=== PATIENT | female | born 1940 | race Caucasian/White ===

== ENCOUNTER 2023-03-19 08:48 | Emergency (ER) | payer MEDICARE, OTHER, SELFPAY ==
[2023-03-19 08:49] VITALS: BP 175/92
--- NOTE | 2023-03-19 09:00 | EDRN ---
Pt moved from room #23 to room #17 at this time via stretcher.
--- NOTE | 2023-03-19 09:01 | EDRN ---
Doc Thomas PA in room w/ pt at this time.
--- NOTE | 2023-03-19 09:18 | ED.GENMED ---
History of Present Illness
General
Chief Complaint: Musculo-Skeletal Complaint
Source: patient
Time Seen by Provider: 03/19/23 08:53
Travel History
Have you had any contact with someone who has COVID-19?: No
Do you have any symptoms of coronavirus? Fever > 100 degrees, chills, cough, shortness of breath, sore throat, loss of taste or smell, muscle aches, or headache?: No
History of Present Illness
History of Present Illness:
82-year-old female with a past medical history of hypertension, previous bowel obstruction and chronic back pain presenting to the emergency department for evaluation after she had an injection done at an [facility] yesterday for which
she states she needed to have done prior to a back surgery as she is scheduled to have at [facility] in the coming weeks but states she is unable to tell me exactly what type of injection she had done yesterday as well as what type of surgical
procedure she is supposed to have. Patient notes that she was supposed to have surgery a few months ago with another surgeon, Dr. Veronica, here at this facility but due to unforeseen circumstances had to have this surgery canceled and needed to
follow-up with another provider. Patient states that since her procedure yesterday she has had pain at the injection site which she notes is not typical for her as she has had injections in the past but has not had any pain with them. Patient
states the procedure was done around 8 AM to 9 AM yesterday, has not had any fevers, chills, rigors, neurologic symptoms including focal weakness or numbness/paresthesia, bowel or urinary incontinence, inability to ambulate or any other concerns.
Patient did drive herself to the ER today. She notes that she is unable to take any pain medications due to multiple allergies but did states she took some Motrin earlier today but did not provide her with any relief.
Past History
Past History
ED Past Medical History: HTN and Other (Breast cancer, cervical cancer)
ED Past Surgical History: Gynecological (Hysterectomy), Orthopedic and Other (Left sided mastectomy)
Social History
Tobacco: Non-smoker
Alcohol: None
Drug: None
Personal:
Living: with family
Review of Systems
Review of Systems
All Other Systems: ROS reviewed and negative except as documented in HPI and ROS
Phy Exam
Physical Exam
Physical Exam:
GENERAL: Alert , in no apparent distress
EYE: clear conjunctiva b/l
NECK: Supple
ENT: o/p clr, mmm.
BACK: Normal range of motion, no focal tenderness, no midline bony tenderness, no rashes. Patient does have a skin marker as to where the injection took place an injection site is noted but without any overlying erythema, edema or focal tenderness
to palpation
NEUROLOGICAL: Alert and oriented, no focal neuro deficits. sensation grossly intact and equal to light touch bilateral lower extremities. Ambulated with steady gait and without much difficulty
SKIN: Warm and dry, skin intact.
MUSCULOSKELETAL: No edema, well perfused. EHL intact bilaterally
PSYCH: Normal and appropriate interaction.
Scores
Heart Failure Risk
Heart Failure Risk Score: Not Applicable
Heart Score for Chest Pain Patients
STEMI patient?: Not applicable
Withdrawal Assessment of Alcohol
Withdrawal Assessment Completed?: Not applicable
Course
Vital Signs
Initial and Last Documented VS:
Initial Vital Signs
Temp Pulse Resp BP Pulse Ox
97.7 F 88 18 175/92 97
03/19/23 08:49 03/19/23 08:49 03/19/23 08:49 03/19/23 08:49 03/19/23 08:49
Last Documented Vital Signs
Temp Pulse Resp BP Pulse Ox
97.7 F 76 16 141/76 100
03/19/23 08:49 03/19/23 09:32 03/19/23 09:32 03/19/23 09:32 03/19/23 09:32
MDM/Problems Addressed
Differential Diagnosis Includes:
Postprocedural pain, no concern for infection given it is been less than 24 [address], no concern for an acute neurologic compromise
MDM/Problems Addressed:
82-year-old female presenting the emergency department for evaluation after some form of procedure on her back yesterday, states she did not have any pain prior to the procedure but following now noting considerable pain. It is overall unclear as
to why patient had this injection as she is not able to tell me what the injection was or why she was having it or what type of surgery she needed other than she has a chronic back issue and it was recommended by Dr. Nhan Veronica that she have this
surgery. Patient has had MRIs but they have been done at outpatient facilities so I am unable to view this. Patient did not have any paperwork with her from the surgery center or from her back specialist office. Overall patient does not appear to
have any acute signs of infection nor acute neurological complication. Due to extensive allergy will hold off on providing with any pain medication at this time. Attempting to get records from [facility] to see exactly what type of surgery patient
was recommended to have as well as hopefully what exact procedure was done.
Chronic conditions affecting care: Other (chronic back pain)
*Pulse Oximetry
Patient hypoxic: no
*Critical Care Note
Total Time (30-74mins, 75-104mins- exclusive of procedures): Not Applicable
Data Reviewed
Review of Other/Old Records Reveals: Records and Radiology Studies
Source: patient
Comment
Comment:
Patient did have a lumbar spine CT scan done on December 15, 2021 here which showed multilevel degenerative changes of the mid to the lower lumbar spine worst at L4-L5 where disc and facet disease contribute to severe spinal canal stenosis. Awaiting
records from [facility] to correlate.
Patient Management
Escalation/DeEscalation of care consider admission/obs:
I received multiple records from the [facility] where patient is currently following. Unfortunately they did not have her report from yesterday as this has not been completed but the office staff noted patient did have an epidural injection
done yesterday. Patient is noted to have foraminal stenosis of the lumbosacral region, lumbar stenosis with neurogenic claudication, spondylolisthesis of the lumbar region and spondylolisthesis of the lumbosacral region. It appears patient is
scheduled to undergo lumbar decompression at L4-S1 and likely need a fusion at L4 and L5. Patient is scheduled to undergo this procedure on April 05. At this time there does not appear to be any emergent pathology and the patient is stable for
discharge home. I encouraged the patient to contact [facility] and notify them of her symptoms as well as if they would like to follow-up with the patient. There does not appear to be any emergent pathology ongoing at this time. Patient advised on
post epidural symptoms that she should expect as well as return precautions to the emergency department. Patient is stable for discharge home.
ED Attending Note
-
Portions of this chart may have been created with voice recognition software.� Occasional wrong word or��sound alike� substitutions may have occurred due to the inherent limitations of voice recognition software.
Discharge Plan
Departure
Patient Disposition: Home (Routine Discharge)
Date of Disposition: 03/19/23
Time of Disposition: 11:02
Patient with high blood pressure during this ER visit?: Yes
Discharge Problem:
Other acute postprocedural pain
Instructions: Epidural Injection
Prescriptions:
No Action
cholecalciferol (vitamin D3) [Vitamin D3] 1,000 UNIT tablet,chewable
1,000 unit PO DAILY
Claritin-D 24 Hour 10-240 mg Tablet Extended Release 24 Hr
1 tab PO DAILY
lisinopril 5 mg Tablet
5 mg PO DAILY
Allergy Relief [place] 2-0.1 % Aerosol,[place]
1 spray DAILY
Referrals:
Johnathan Hill MD [Family Provider] -
Interventions
Interventions:
*Risk Screen - Suicide Last Done: 03/19/23 08:49
*General Assessment Last Done: 03/19/23 08:49
*Neglect/Abuse Screening Last Done: 03/19/23 08:49
*ED COVID-19 Vaccine History Last Done: 03/19/23 08:49
ED-Musculoskeletal Assessment Last Done: 03/19/23 09:33
[2023-03-19 09:31] VITALS: BMI 19.1
[2023-03-19 09:32] VITALS: BP 141/76
--- NOTE | 2023-03-19 11:00 | EDRN ---
Doc Thomas PA in room w/pt at this time.
[2023-03-19 11:05] VITALS: BP 148/81
[2023-03-19 11:16] VITALS: BP 148/81
== END 2023-03-19 11:05 | disposition home or self-care (01) ==
LOC: EMR 08:48
PROVIDERS: EMERGENCY PHYSICIAN Emergency Medicine; FAMILY PHYSICIAN Family Medicine
DX: G89.18 Other acute postprocedural pain (principal); I10 Essential (primary) hypertension; G89.29 Other chronic pain; M54.9 Dorsalgia, unspecified
CPT/HCPCS: 99282

== ENCOUNTER 2023-04-25 16:53 | Emergency (ER) | payer MEDICARE, OTHER, SELFPAY ==
[2023-04-25 16:53] VITALS: BMI 20.8
[2023-04-25 16:56] VITALS: BP 133/68
[2023-04-25 20:39] VITALS: BP 122/59
[2023-04-25 21:00] VITALS: BP 129/53
[2023-04-25 22:00] VITALS: BP 138/61
--- NOTE | 2023-04-25 22:03 | ED.GENMED ---
History of Present Illness
General
Chief Complaint: Fall
Source: patient and family (daughter)
Exam Limitations: none
Time Seen by Provider: 04/25/23 21:39
Travel History
Have you had any contact with someone who has COVID-19?: No
Do you have any symptoms of coronavirus? Fever > 100 degrees, chills, cough, shortness of breath, sore throat, loss of taste or smell, muscle aches, or headache?: No
History of Present Illness
History of Present Illness:
This is a 83 year old female that comes in with c/o fall. Daughter states that the patient was just discharged form [facility] on Sunday. States that she had back surgery there. State that she was discharged without any VN or Physical therapy. States
that she can barely walk with the walker. Patient was trying to walk form the couch to the with the walker and she fell. States that she can hardly get out of the chair and she can't take care of herself. Daughter states that she was to get on a
plane to [facility]. States that she hit her head and has a small laceration. Denies any fever, chills, chest pain, SOB, abd pain, nausea, vomiting, diarrhea, headache, dizziness, urinary burning.
Past History
Past History
ED Past Medical History: Cancer (Breast cancer, cervical cancer), HTN and Other (Back pain, Intussusception, Bowel obstructions, C-diff, )
ED Past Surgical History: Gynecological (Hysterectomy), Orthopedic (Femur fracture with allison, Lumbar back surgery) and Other (Left sided mastectomy, cataracts, )
Social History
Tobacco: Non-smoker
Alcohol: Occasional
Drug: None
Personal: Single
Living: alone
Review of Systems
Review of Systems
All Other Systems: ROS reviewed and negative except as documented in HPI and ROS
Constitutional: Reports no symptoms; Denies fever or chills
EENT: Reports no symptoms
Respiratory: Reports no symptoms; Denies cough or trouble breathing
Cardiac: Reports no symptoms; Denies chest pain
ABD/GI: Reports no symptoms; Denies abdominal pain, nausea, vomiting or diarrhea
: Reports no symptoms; Denies dysuria, frequency or urgency
Musculoskeletal: Reports back pain (due to recent surgery)
Skin: Reports other (small laceration to left posterior forehead)
Neurological: Reports no symptoms; Denies dizzy or headache
Psychiatric: Reports no symptoms
Phy Exam
General Physical Exam
General Presentation: no apparent distress
General age: appears stated age
General Skin: warm and dry
General Habitus: elderly
General Mental: alert
General Hydration: dry mucous membranes
ENT Exam
ENT Exam: TM's normal, pharynx normal and neck supple
Eye Exam
Eye Exam: EOMI
Cardiovascular Exam
Cardiovascular Exam: regular rate/rhythm, no edema and normal peripheral pulses
Pulmonary Exam
Pulmonary Exam: lungs clear, no respiratory distress, no rales, chest non tender, no crackles, no rhonchi, no wheezing and no cough
Gastrointestinal Exam
Gastrointestinal Exam: normal bowel sounds, non tender, soft, no organomegaly, no pulsatile mass and non distended
Musculoskeletal Exam
Musculoskeletal Exam: full ROM and other (Negative for cervical neck tenderness, )
Skin Exam
Skin Exam: normal color, warm/dry, no rash, no petechia, laceration (left posterior scalp small) and other (Low back incision with suture maintained. Negative for any redness, )
Psychiatric Exam
Psychiatric Exam: normal mood/affect
Course
Orders/Labs/Results
Orders:
Orders
04/25/23 22:03
CT Head W/o Iv Contrast Urgent
Comment:
Reason For Exam: fall hitting head
04/25/23 22:37
Complete Blood Count/With Diff Urgent
Comprehensive Metabolic Panel Urgent
04/25/23 23:54
0.9% Sodium Chloride 1000 ml [Nss] 1,000 ml IV BOLUS
Abnormal Lab Results
04/25/23
22:37
RBC 3.71 L 10^6/uL
(4.20-5.40)
Hgb 11.6 L g/dL
(12.0-16.0)
Hct 33.6 L %
(37.0-47.0)
MCH 31.3 H pg
(27.0-31.0)
Absolute Monos (auto) 1.2 H 10^3/uL
(0.1-0.6)
Lymphocytes % 15.0 L %
(20.5-51.1)
Monocytes % 12.8 H %
(1.7-9.3)
Sodium 131 L mmol/L
(135-145)
BUN 34 H mg/dl
(7-17)
Glucose 105 H mg/dl
(70-99)
AST 49 H U/L
(14-36)
ALT 82 H U/L
(0-35)
Alkaline Phosphatase 149 H U/L
(38-126)
Total Protein 6.2 L g/dl
(6.3-8.2)
04/25/23 22:37
04/25/23 22:37
H/H slightly low. Dehydration. Glucose nonfasting. AST/ALT elevation. Alk phos elevation.
Vital Signs
Initial and Last Documented VS:
Initial Vital Signs
Temp Pulse Resp BP Pulse Ox
98.1 F 80 18 133/68 98
04/25/23 16:56 04/25/23 16:56 04/25/23 16:56 04/25/23 16:56 04/25/23 16:56
Last Documented Vital Signs
Temp Pulse Resp BP Pulse Ox
98.8 F 86 20 137/59 98
04/26/23 01:58 04/26/23 01:58 04/26/23 01:58 04/26/23 01:58 04/26/23 01:58
Procedures
Laceration Closure
Left Posterior Scalp:
Status of Wound: clean
Size of Wound in cm: 2
Description of Wound Edges: sharp
Preparation: cleaned with saline (and peroxide)
Revision/Debridement: routine- no revision
Wound exploration: explored to base- no FB
Skin Closure Material: skin gagan
Additional information:
Two gagan placed
MDM/Problems Addressed
Differential Diagnosis Includes:
fall, ambulatory dysfunction,
MDM/Problems Addressed:
This is a 83 year old female that comes in with c/o fall. Daughter states that she was just discharged from [facility] on Sunday and she was sent home with no VN or PT. States that she lives alone and can barely walk. States that she can't get out of
the chair on her own. Patient fell trying to use the walker to get to the from the coach driver.
Will check labs, CT head and will admit for a social admission as Daughter is leaving for [place].
Back into see patient. Explained that her blood work shows that she is dehydrated and her liver enzymes are elevated. CT of the head is normal. Will admit patient for possible longterm placement for rehab. .
Chronic conditions affecting care:
NA
Acute Exacerbation and/or Progression of Chronic Illness:
Recent back surgery
*Radiology
Radiology exam reviewed: radiology read reviewed (CT head-No acute intracranial abnormality. Left lateral scalp laceration and small scalp hematoma. )
*Pulse Oximetry
Patient hypoxic: no
*EKG
Interpreted by ED Provider?: NA
Rate: EKG- N/A
*Telecommunications Project Manager Interpretation
Rate: Telecommunications Project Manager- N/A
*Critical Care Note
Total Time (30-74mins, 75-104mins- exclusive of procedures): Not Applicable
ED Attending Note
-
Portions of this chart may have been created with voice recognition software.� Occasional wrong word or��sound alike� substitutions may have occurred due to the inherent limitations of voice recognition software.
Discharge Plan
Departure
Patient Disposition: Admit
Date of Disposition: 04/25/23
Time of Disposition: 23:53
Admit to: Med/Surg
Presentation/result/management discussed w/ accepting MD/DO: Hospitalist
Patient with high blood pressure during this ER visit?: Yes
Condition: Good
Covid-19: Not Applicable
Discharge Problem:
Fall, Dehydration, Hospital admission due to social situation
Prescriptions:
No Action
cholecalciferol (vitamin D3) [Vitamin D3] 1,000 UNIT tablet,chewable
1,000 unit PO DAILY
lisinopril 5 mg Tablet
5 mg PO DAILY
tizanidine 2 mg tablet
2 mg PO HS PRN (Reason: muscle spasms)
tramadol 50 mg tablet
50 mg PO Q6H PRN (Reason: moderate pain)
Patient Comments:
04/25/2023: last filled 04/23/23, 20 tabs for 5 days from [id number]
loratadine 10 mg Tablet
10 mg PO DAILY
Referrals:
Johnathan Hill MD [Family Provider] -
Interventions
Interventions:
*Risk Screen - Suicide Last Done: 04/25/23 16:58
*General Assessment Last Done: 04/25/23 16:58
*Neglect/Abuse Screening Last Done: 04/25/23 16:58
ED- Fall Risk Assessment Last Done: 04/26/23 01:58
*ED COVID-19 Vaccine History Last Done: 04/25/23 20:52
ED- Cardiac Assessment Last Done: 04/26/23 01:58
ED-Musculoskeletal Assessment Last Done: 04/26/23 01:58
ED- Neurological Assessment Last Done: 04/26/23 01:58
ED- Pulmonary Assessment Last Done: 04/26/23 01:58
ED-Skin Assessment Last Done: 04/26/23 01:58
[2023-04-25 22:46] LABS: % Basophils 0.3 % (0-2); % Eosinophils 2.2 % (0-6); % Immature Granulocytes 0.3 % (0-0.5); % Monocytes 12.8 % (1.7-9.3); % Neutrophils 69.4 % (42.2-75.2); Absolute Eosinophils 0.2 10^3/uL (0-0.7); Absolute Lymphocytes 1.4 10^3/uL (1.2-3.4); Absolute Monocytes 1.2 10^3/uL (0.1-0.6); Absolute Neutrophils 6.3 10^3/uL (1.4-6.5); Hematocrit 33.6 % (37.0-47.0); Hemoglobin 11.6 g/dL (12.0-16.0); Mean Corp Hgb Conc. 34.5 g/dL (33.0-37.0); Mean Corpuscular Hgb 31.3 pg (27.0-31.0); Mean Corpuscular Volume 90.6 fL (81.0-99.0); Mean Platelet Volume 9.5 fL (7.4-10.4); Nucleated Red Blood Cells % 0 %; Platelet Count 252 10^3/uL (130-400); Red Blood Cell Count 3.71 10^6/uL (4.20-5.40); Red Cell Dist. Width 13.5 % (11.5-14.5); White Blood Cell Count 9.1 10^3/uL (4.8-10.8)
[2023-04-25 23:01] LABS: ALT (SGPT) 82 U/L (0-35); AST (SGOT) 49 U/L (14-36); Albumin 3.5 g/dl (3.5-5.0); Alkaline Phosphatase 149 U/L (38-126); Blood Urea Nitrogen 34 mg/dl (7-17); Calcium 8.8 mg/dl (8.4-10.2); Carbon Dioxide 27 mmol/L (22-30); Chloride 99 mmol/L (98-107); Estimated Creatinine Clearance 42 ml/min; Glucose 105 mg/dl (70-99); Potassium 4.4 mmol/L (3.5-5.1); Sodium 131 mmol/L (135-145); Total Bilirubin 0.6 mg/dl (0.2-1.3); Total Protein 6.2 g/dl (6.3-8.2)
[2023-04-26] MEDS: NSS 1000 IV (01:18)
[2023-04-26 01:58] VITALS: BP 137/59
[2023-04-26 05:18] VITALS: BP 133/74
--- NOTE | 2023-04-26 08:37 | CM ---
Addendum entered by Helene Luciano RN 04/26/23 11:40:
[facility] unable to accept patient.
Addendum entered by Helene Luciano RN 04/26/23 11:30:
Patient does not want [facility]. Patient stated that if she can't be placed in [facility] or [facility] she is going to go home with home care.
Addendum entered by Helene Luciano RN 04/26/23 09:19:
CM spoke with patient. She stated that she is agreeable to SNF placement. Patient is requesting [facility]. CM spoke with [facility] admission director. She will review referral. Patient does not want to go to [facility].
CM left message for Laura at [facility] to have her review referral.
Original Note:
CM reviewed medical records. Patient presenting from home after a fall. JOSÉ MIGUEL spoke with case management at [facility] and confirmed that the patient was inpatient from 04/18-04/22. [facility] and [facility]. JOSÉ MIGUEL
pending PT evaluation.
[2023-04-26 11:59] VITALS: BP 124/61
--- NOTE | 2023-04-26 12:05 | CM ---
Patient is agreeable to go to [facility]
Report
[phone]
[2023-04-26] MEDS: ULTRAM 50 MG PO (13:43)
[2023-04-26 14:30] VITALS: BP 131/64
== END 2023-04-26 14:31 | disposition still patient (30) ==
LOC: EMR 16:53
PROVIDERS: Clinical Nurse Specialist Family Health; EMERGENCY PHYSICIAN Emergency Medicine; FAMILY PHYSICIAN Family Medicine
DX: E86.0 Dehydration (principal); S01.01XA Laceration without foreign body of scalp, initial encounter; W19.XXXA Unspecified fall, initial encounter; Z75.1 Person awaiting admission to adequate facility elsewhere; I10 Essential (primary) hypertension; Z60.8 Other problems related to social environment; Z60.2 Problems related to living alone; Z85.3 Personal history of malignant neoplasm of breast; Z85.41 Personal history of malignant neoplasm of cervix uteri; Z90.12 Acquired absence of left breast and nipple; Z90.710 Acquired absence of both cervix and uterus
CPT/HCPCS: 99284; 96360; 70450; 80053; 85025

== ENCOUNTER 2023-04-27 11:39 | Emergency (ER) | payer MEDICARE, OTHER, SELFPAY ==
[2023-04-27] VITALS (8 sets, daily range): BP systolic 134–212; BP diastolic 60–96
[2023-04-27] MEDS: APRESOLINE 10 MG IV (11:52)
[2023-04-27 12:08] LABS: % Basophils 0.3 % (0-2); % Eosinophils 0.4 % (0-6); % Immature Granulocytes 0.3 % (0-0.5); % Lymphocytes 4.2 % (20.5-51.1); % Monocytes 7.6 % (1.7-9.3); % Neutrophils 87.2 % (42.2-75.2); Absolute Lymphocytes 0.5 10^3/uL (1.2-3.4); Absolute Monocytes 0.9 10^3/uL (0.1-0.6); Absolute Neutrophils 9.9 10^3/uL (1.4-6.5); Hematocrit 33.2 % (37.0-47.0); Hemoglobin 11.7 g/dL (12.0-16.0); Mean Corp Hgb Conc. 35.2 g/dL (33.0-37.0); Mean Corpuscular Hgb 31.4 pg (27.0-31.0); Mean Platelet Volume 9.4 fL (7.4-10.4); Nucleated Red Blood Cells % 0 %; Platelet Count 314 10^3/uL (130-400); Red Blood Cell Count 3.73 10^6/uL (4.20-5.40); Red Cell Dist. Width 13.3 % (11.5-14.5); White Blood Cell Count 11.3 10^3/uL (4.8-10.8)
[2023-04-27 12:22] LABS: ALT (SGPT) 53 U/L (0-35); AST (SGOT) 32 U/L (14-36); Albumin 3.7 g/dl (3.5-5.0); Alkaline Phosphatase 148 U/L (38-126); Blood Urea Nitrogen 33 mg/dl (7-17); Carbon Dioxide 28 mmol/L (22-30); Chloride 96 mmol/L (98-107); Glucose 124 mg/dl (70-99); Potassium 4.4 mmol/L (3.5-5.1); Sodium 131 mmol/L (135-145); Total Bilirubin 0.6 mg/dl (0.2-1.3); Total Protein 6.5 g/dl (6.3-8.2); eGFR > 60.00
[2023-04-27 12:28] LABS: Lipase 66 U/L (23-300)
--- NOTE | 2023-04-27 13:08 | ED.GENMED ---
History of Present Illness
General
Chief Complaint: Abdominal Symptoms
Source: patient and family (Daughter)
Time Seen by Provider: 04/27/23 12:58
Travel History
Have you had any contact with someone who has COVID-19?: No
Do you have any symptoms of coronavirus? Fever > 100 degrees, chills, cough, shortness of breath, sore throat, loss of taste or smell, muscle aches, or headache?: No
History of Present Illness
History of Present Illness:
83-year-old female presents to the emergency room complaining of abdominal pain, nausea and vomiting. Patient has had multiple episodes of vomiting since last night. No diarrhea. Last bowel movement was a couple days ago. She does not feel
constipated. Patient was recently hospitalized at [facility] for lumbar surgery. She has had a hysterectomy in the past. She also has history of bowel obstruction with lysis of adhesions in the past.
Past History
Past History
ED Past Medical History: Cancer (Breast cancer, cervical cancer), HTN and Other (Back pain, Intussusception, Bowel obstructions, C-diff, )
ED Past Surgical History: Gynecological (Hysterectomy), Orthopedic (Femur fracture with allison, Lumbar back surgery) and Other (Left sided mastectomy, cataracts, )
Social History
Tobacco: Non-smoker
Alcohol: Occasional
Drug: None
Personal: Single
Living: alone
Phy Exam
Physical Exam
Physical Exam:
General: Awake, Alert, Oriented X3. Patient in no distress but appears uncomfortable, chronically ill
Vitals: unremarkable
Head: Atraumatic
Eyes: Pupils equal, EOMI
Throat: Airway intact, no exudates, dry mucosa
Neck: Trachea midline
Lungs: Clear and equal b/l
Heart: Regular rate, no murmurs
Abd: Soft, mildly tender diffusely but most tender in the left lower quadrant, abdomen is distended and somewhat tense, No pulsatile mass
Neuro: Nonfocal
Skin: Warm, dry, no rash, pale complexion
Extremities: pulses equal b/l, no edema
Course
Orders/Labs/Results
Orders:
Orders
04/27/23 11:48
HydrALAZINE [Apresoline] 10 mg IV NOW STA
04/27/23 11:58
CMP [Comprehensive Metabolic Panel] Urgent
Complete Blood Count/With Diff Urgent
Lipase Urgent
04/27/23 13:06
CT Abd/Pel (IV only)-DH only Urgent
Comment:
Reason For Exam: nausea, vomiting, lwr abd pain, refuses oral cont
0.9% Sodium Chloride 1000 ml [Nss] 1,000 ml IV BOLUS
HYDROmorphone [Dilaudid] 0.5 mg IV NOW STA
Ondansetron Injectable [Zofran] 4 mg IV NOW STA
04/27/23 14:51
Fung [Fung Placement- Treatment] ONCE
Reason for insertion: Outlet obstruction
04/27/23 15:10
Urinalysis Reflex To Culture Urgent
Date Specimen was Collected: 04/27/23
Time Specimen was Collected: 15:09
Abnormal Lab Results
04/27/23
11:58
WBC 11.3 H 10^3/uL
(4.8-10.8)
RBC 3.73 L 10^6/uL
(4.20-5.40)
Hgb 11.7 L g/dL
(12.0-16.0)
Hct 33.2 L %
(37.0-47.0)
MCH 31.4 H pg
(27.0-31.0)
Absolute Neuts (auto) 9.9 H 10^3/uL
(1.4-6.5)
Absolute Lymphs (auto) 0.5 L 10^3/uL
(1.2-3.4)
Absolute Monos (auto) 0.9 H 10^3/uL
(0.1-0.6)
Neutrophils % 87.2 H %
(42.2-75.2)
Lymphocytes % 4.2 L %
(20.5-51.1)
Sodium 131 L mmol/L
(135-145)
Chloride 96 L mmol/L
(98-107)
BUN 33 H mg/dl
(7-17)
Glucose 124 H mg/dl
(70-99)
ALT 53 H U/L
(0-35)
Alkaline Phosphatase 148 H U/L
(38-126)
04/27/23 11:58
04/27/23 11:58
Vital Signs
Initial and Last Documented VS:
Initial Vital Signs
BP
212/94
04/27/23 11:40
Last Documented Vital Signs
Temp Pulse Resp BP Pulse Ox
98.4 F 92 16 139/60 97
04/27/23 11:42 04/27/23 11:42 04/27/23 11:42 04/27/23 18:00 04/27/23 18:00
MDM/Problems Addressed
Differential Diagnosis Includes:
Small bowel obstruction, perforated viscus, diverticulitis
MDM/Problems Addressed:
CT shows markedly enlarged bladder. Fung placed with 1400 cc of urine returned. Fortunately the patient did not develop any hematuria or significant post obstructive diuresis. She was observed for couple hours after Fung placement. She is
feeling much better. Patient stable for discharge back to her facility.
*Radiology
Radiology exam reviewed: radiology read reviewed
*Pulse Oximetry
Patient hypoxic: no
*Critical Care Note
Total Time (30-74mins, 75-104mins- exclusive of procedures): Not Applicable
ED Attending Note
-
Portions of this chart may have been created with voice recognition software.� Occasional wrong word or��sound alike� substitutions may have occurred due to the inherent limitations of voice recognition software.
Discharge Plan
Departure
Patient Disposition: Skilled Nursing/SNF
Date of Disposition: 04/27/23
Time of Disposition: 17:13
Condition: Good
Discharge Problem:
Acute urinary retention
Instructions: Urinary Retention (DC)
Prescriptions:
No Action
cholecalciferol (vitamin D3) [Vitamin D3] 1,000 UNIT tablet,chewable
1,000 unit PO DAILY
lisinopril 5 mg Tablet
5 mg PO DAILY
tizanidine 2 mg tablet
2 mg PO HS PRN (Reason: muscle spasms)
tramadol 50 mg tablet
50 mg PO Q6HPRN PRN (Reason: moderate pain)
Patient Comments:
04/25/2023: last filled 04/23/23, 20 tabs for 5 days from [id number]
loratadine 10 mg Tablet
10 mg PO DAILY
acetaminophen [Tylenol] 325 mg Tablet
650 mg PO Q4HPRN PRN (Reason: mild pain)
magnesium hydroxide [Milk of Magnesia] 400 mg/5 mL Suspension
2,400 mg PO Q96H PRN (Reason: constipation- no bm on 4th day)
bisacodyl [Dulcolax (bisacodyl)] 10 mg Suppository
10 mg RI DAILYPRN PRN (Reason: constipation)
Fleet Enema 19-7 gram/118 mL Enema
118 ml RI DAILYPRN PRN (Reason: constipation)
Referrals:
Khris Santiago MD [Family Provider] -
Maximo Ramos MD [Active] -
Interventions
Interventions:
*Risk Screen - Suicide Last Done: 04/27/23 11:42
*General Assessment Last Done: 04/27/23 11:42
*Neglect/Abuse Screening Last Done: 04/27/23 11:42
*ED COVID-19 Vaccine History Last Done: 04/27/23 11:42
DF-Kqyruy-Hxjleixrxl Assessment Last Done: 04/27/23 14:02
[2023-04-27] MEDS: NSS 1000 IV (13:41)
[2023-04-27] MEDS: DILAUDID 0.5 MG IV (13:41)
[2023-04-27] MEDS: ZOFRAN 4 MG IV (13:41)
[2023-04-27 15:21] LABS: Urine Albumin Negative (Neg - Trace); Urine Bilirubin Negative (Negative); Urine Character Clear (Clear); Urine Color Yellow; Urine Glucose Negative (Negative); Urine Ketone Negative (Negative); Urine Leukocyte Negative (Negative); Urine Nitrite Negative (Negative); Urine Occult Blood Negative (Negative); Urine Specific Gravity 1.015 (<1.030); Urine Urobilinogen Negative (Neg - 1+)
== END 2023-04-27 22:03 ==
LOC: EMR 11:39
PROVIDERS: Emergency Medicine; EMERGENCY PHYSICIAN Emergency Medicine; FAMILY PHYSICIAN Family Medicine
DX: R33.8 Other retention of urine (principal); R11.2 Nausea with vomiting, unspecified; R14.0 Abdominal distension (gaseous)
CPT/HCPCS: 99285; 96374; 96375 ×2; 96361; 51702; 74177; 80053; 81003; 83690; 85025; Q9967

== ENCOUNTER 2023-10-03 06:39 | Outpatient (RCR) | payer MEDICARE, OTHER, SELFPAY | END 2023-10-03 23:59 | disposition home or self-care (01) | LOC: RPT 06:39 | PROVIDERS: ATTENDING PHYSICIAN Orthopaedic Surgery; FAMILY PHYSICIAN Family Medicine | DX: M48.062 Spinal stenosis, lumbar region with neurogenic claudication (principal); M54.59 Other low back pain; M43.16 Spondylolisthesis, lumbar region; Z73.6 Limitation of activities due to disability | CPT/HCPCS: 97010; 97110; 97112; 97162; 97530 ==

== ENCOUNTER → 2023-11-02 09:44 | Outpatient (REF) | payer MEDICARE, OTHER, SELFPAY ==
[2023-11-02 10:35] LABS: % Basophils 1.1 % (0-2); % Eosinophils 9.2 % (0-6); % Immature Granulocytes 0.3 % (0-0.5); % Monocytes 9.4 % (1.7-9.3); Absolute Basophils 0.1 10^3/uL (0-0.2); Absolute Eosinophils 0.6 10^3/uL (0-0.7); Absolute Lymphocytes 1.6 10^3/uL (1.2-3.4); Absolute Monocytes 0.6 10^3/uL (0.1-0.6); Absolute Neutrophils 3.6 10^3/uL (1.4-6.5); Hematocrit 43.8 % (37.0-47.0); Hemoglobin 14.5 g/dL (12.0-16.0); Mean Corp Hgb Conc. 33.1 g/dL (33.0-37.0); Mean Corpuscular Hgb 30.4 pg (27.0-31.0); Mean Corpuscular Volume 91.8 fL (81.0-99.0); Nucleated Red Blood Cells % 0 %; Platelet Count 278 10^3/uL (130-400); Red Blood Cell Count 4.77 10^6/uL (4.20-5.40); Red Cell Dist. Width 13.9 % (11.5-14.5); White Blood Cell Count 6.5 10^3/uL (4.8-10.8)
[2023-11-02 11:34] LABS: ALT (SGPT) 24 U/L (0-35); AST (SGOT) 30 U/L (14-36); Albumin 4.5 g/dl (3.5-5.0); Alkaline Phosphatase 122 U/L (38-126); Blood Urea Nitrogen 29 mg/dl (7-17); Calcium 9.4 mg/dl (8.4-10.2); Carbon Dioxide 25 mmol/L (22-30); Chloride 103 mmol/L (98-107); Glucose 96 mg/dl (70-99); Potassium 4.5 mmol/L (3.5-5.1); Sodium 144 mmol/L (135-145); Total Bilirubin 0.6 mg/dl (0.2-1.3); Total Protein 7.5 g/dl (6.3-8.2)
== END ==
LOC: REG 09:44
PROVIDERS: ATTENDING PHYSICIAN Family Medicine
DX: I10 Essential (primary) hypertension (principal); D64.9 Anemia, unspecified
CPT/HCPCS: 36415; 80053; 85025

== ENCOUNTER 2024-03-31 12:55 | Emergency (ER) | payer MEDICARE, OTHER, SELFPAY ==
[2024-03-31 13:07] VITALS: BP 133/71
--- NOTE | 2024-03-31 13:45 | ED.GENMED ---
History of Present Illness
<Kamran Thomas PA-C - Last Filed: 03/31/24 14:24>
General
Chief Complaint: BURN-MINOR
Source: patient
Time Seen by Provider: 03/31/24 13:31
History of Present Illness
History of Present Illness:
84-year-old female with past medical history of hypertension, breast cancer, previous bowel obstruction presenting to the ER after she dropped a hot tea bag onto the dorsum of her left foot 3 days ago sustaining a burn, continued pain which is what
her come to the ER today. Patient is unsure of her last tetanus (does not want this updated here), no other injuries sustained. Patient does note multiple medication allergies to antibiotics. No other concerns presently.
Past History
<Kamran Thomas PA-C - Last Filed: 03/31/24 14:24>
Past History
ED Past Medical History: Cancer (Breast cancer, cervical cancer), HTN and Other (Back pain, Intussusception, Bowel obstructions, C-diff, )
ED Past Surgical History: Gynecological (Hysterectomy), Orthopedic (Femur fracture with allison, Lumbar back surgery) and Other (Left sided mastectomy, cataracts, )
Social History
Tobacco: Non-smoker
Alcohol: Occasional
Drug: None
Personal: Single
Living: alone
Review of Systems
<Kamran Thomas PA-C - Last Filed: 03/31/24 14:24>
Review of Systems
All Other Systems: ROS reviewed and negative except as documented in HPI and ROS
Phy Exam
<MARGARET Chatman Last Filed: 03/31/24 14:24>
Physical Exam
Physical Exam:
GENERAL: Alert , in no apparent distress
EYE: conjunctiva clear
Head: Normocephalic atraumatic
NECK: Supple,
ENT: mmm.
LUNGS: no acute respiratory distress
NEUROLOGICAL: Alert and oriented
SKIN: Warm and dry, dorsum of the left foot at the distal fourth and fifth metatarsals has an approximate 1-1/2 to 2 cm circumferential area of first-degree burn. Skin mildly sloughed. There is some slight surrounding erythema along the edges of
the burn but no streaking or purulence
MUSCULOSKELETAL: well perfused.
PSYCH: Normal and appropriate interaction.
Scores
<Kamran Thomas PA-C - Last Filed: 03/31/24 14:24>
Heart Failure Risk
Heart Failure Risk Score: Not Applicable
Heart Score for Chest Pain Patients
STEMI patient?: Not applicable
Withdrawal Assessment of Alcohol
Withdrawal Assessment Completed?: Not applicable
Course
<Kamran Thomas PA-C - Last Filed: 03/31/24 14:24>
Orders/Labs/Results
Orders:
Orders
03/31/24 13:45
Bacitracin Zinc [Bacitracin Ointment] See Dose Instructions TOPICAL NOW STA
Vital Signs
Initial and Last Documented VS:
Initial Vital Signs
Temp Pulse Resp BP Pulse Ox
97.7 F 101 18 133/71 97
03/31/24 13:07 03/31/24 13:07 03/31/24 13:07 03/31/24 13:07 03/31/24 13:07
Last Documented Vital Signs
Temp Pulse Resp BP Pulse Ox
97.7 F 89 16 135/78 97
03/31/24 13:07 03/31/24 14:06 03/31/24 14:06 03/31/24 14:06 03/31/24 14:06
Wire Brush Maker consulted with Physician
Wire Brush Maker consulted with physician?: Yes
Name of Physician Consulted: Mercedez
<Tim Covarrubias DO - Last Filed: 03/31/24 13:51>
Orders/Labs/Results
Orders:
Orders
03/31/24 13:45
Bacitracin Zinc [Bacitracin Ointment] See Dose Instructions TOPICAL NOW STA
Vital Signs
Initial and Last Documented VS:
Initial Vital Signs
Temp Pulse Resp BP Pulse Ox
97.7 F 101 18 133/71 97
03/31/24 13:07 03/31/24 13:07 03/31/24 13:07 03/31/24 13:07 03/31/24 13:07
Last Documented Vital Signs
Temp Pulse Resp BP Pulse Ox
97.7 F 89 16 135/78 97
03/31/24 13:07 03/31/24 14:06 03/31/24 14:06 03/31/24 14:06 03/31/24 14:06
<Kamran Thomas PA-C - Last Filed: 03/31/24 14:24>
MDM/Problems Addressed
Differential Diagnosis Includes:
First-degree burn, early cellulitis, necrotizing fasciitis, no concern for fracture
MDM/Problems Addressed:
84-year-old female presenting to the ER for evaluation of a burn sustained to the dorsum of her left foot when she excellently dropped a hot tea bag onto the foot 3 days ago. Patient does not have any dressing over the foot. Question mild early
cellulitis. Due to patient's multiple medication allergies and history of C. difficile I am hesitant to start her on an oral antibiotic. Will treat with topicals. I notified patient's primary care provider to help with expediting outpatient
follow-up later this week. Patient is aware of return precautions to the emergency. Otherwise stable for discharge home.
<Kamran Thomas PA-C - Last Filed: 03/31/24 14:24>
*Pulse Oximetry
Patient hypoxic: no
*Critical Care Note
Total Time (30-74mins, 75-104mins- exclusive of procedures): Not Applicable
Data Reviewed
Review of Other/Old Records Reveals: Records
ED Attending Note
<Kamran Thomas PA-C - Last Filed: 03/31/24 14:24>
-
Portions of this chart may have been created with voice recognition software.� Occasional wrong word or��sound alike� substitutions may have occurred due to the inherent limitations of voice recognition software.
<Tim Covarrubias DO - Last Filed: 03/31/24 13:51>
ED Attending Note
Patient seen and examined by attending physician: Yes
I performed the substantive portion of visit, reviewed & personally made and approve the management plan that is documented in note by myself or GLENIS.: Yes
ED Attending Note:
84-year-old female with burn to her foot. She presents with a wound to the dorsal left foot. Wound is overlying the first MTP joint. She had a sock overlying the open DiEnna slipper she had no dressing on it. Patient does noted to have redness
surrounding the wound. There is no streaking up the leg and no pus drainage. Patient is not diabetic. She states 'I am allergic to everything'. When asked specifically she is unable to list any known reactions. She reportedly has had C.
difficile in the past. For now we will treat with topical antibiotics but asked her to monitor closely. In addition, will refer to wound care
Discharge Plan
Departure
Patient Disposition: Home (Routine Discharge)
Date of Disposition: 03/31/24
Time of Disposition: 13:45
Patient with high blood pressure during this ER visit?: No
Discharge Problem:
Burn of foot, left, first degree
Instructions: Skin Thornton (DC)
Prescriptions:
New
bacitracin 500 unit/gram ointment
1 applic topical TID Qty: 30 0RF
No Action
cholecalciferol (vitamin D3) [Vitamin D3] 1,000 UNIT tablet,chewable
1,000 unit PO DAILY
lisinopril 5 mg Tablet
5 mg PO DAILY
tizanidine 2 mg tablet
2 mg PO HS PRN (Reason: muscle spasms)
tramadol 50 mg tablet
50 mg PO Q6HPRN PRN (Reason: moderate pain)
Patient Comments:
04/25/2023: last filled 04/23/23, 20 tabs for 5 days from [id number]
loratadine 10 mg Tablet
10 mg PO DAILY
acetaminophen [Tylenol] 325 mg Tablet
650 mg PO Q4HPRN PRN (Reason: mild pain)
magnesium hydroxide [Milk of Magnesia] 400 mg/5 mL Suspension
2,400 mg PO Q96H PRN (Reason: constipation- no bm on 4th day)
bisacodyl [Dulcolax (bisacodyl)] 10 mg Suppository
10 mg OK DAILYPRN PRN (Reason: constipation)
Fleet Enema 19-7 gram/118 mL Enema
118 ml OK DAILYPRN PRN (Reason: constipation)
Referrals:
Johnathan Hill MD [Family Provider] -
[facility] -
Interventions
Interventions:
*Risk Screen - Suicide Last Done: 03/31/24 13:42
*General Assessment Last Done: 03/31/24 13:42
*Neglect/Abuse Screening Last Done: 03/31/24 13:42
ED- Fall Risk Assessment Last Done: 03/31/24 13:47
*ED COVID-19 Vaccine History Last Done: 03/31/24 13:42
*Nursing Disposition Last Done: 03/31/24 14:06
ED-Skin Assessment Last Done: 03/31/24 13:42
Discharge Date and Time
Discharge Date/Time: 03/31/24 14:06
Print Language: MALTESE
[2024-03-31] MEDS: BACITRACIN OINTMENT 1 APPLIC TOPICAL (13:52)
[2024-03-31 14:06] VITALS: BP 135/78
== END 2024-03-31 14:06 | disposition home or self-care (01) ==
LOC: EMR 12:55
PROVIDERS: EMERGENCY PHYSICIAN Emergency Medicine; FAMILY PHYSICIAN Family Medicine
DX: T25.122A Burn of first degree of left foot, initial encounter (principal); X10.1XXA Contact with hot food, initial encounter; I10 Essential (primary) hypertension; Z85.3 Personal history of malignant neoplasm of breast; Z85.41 Personal history of malignant neoplasm of cervix uteri; Z90.12 Acquired absence of left breast and nipple; Z90.710 Acquired absence of both cervix and uterus
CPT/HCPCS: 99282

== ENCOUNTER 2024-04-03 19:53 | Inpatient (IN) | payer MEDICARE, OTHER, SELFPAY ==
[2024-04-03 15:05] VITALS: BP 163/84
--- NOTE | 2024-04-03 16:03 | ED.GENMED ---
History of Present Illness
<Layne Gomez PA-C - Last Filed: 04/03/24 17:32>
General
Chief Complaint: Skin Surface Trauma
Source: patient
Exam Limitations: none
Time Seen by Provider: 04/03/24 16:02
Nursing documentation reviewed up to this point in time: agreed with
History of Present Illness
History of Present Illness:
This is a 84-year-old female with past medical history of hypertension who presents to emergency department with left foot pain. Patient states that 4 days ago, she is walking barefoot in her home when she dropped a hot teabag on the dorsum of her
left foot. She subsequently felt some pain at the time and notes of burning afterwards and presented to emergency department and was started on bacitracin ointment. Patient states that she subsequently started to develop surrounding erythema and
pain around the wound states it is painful to walk. Patient states that she has had some purulent drainage as well from the wound. She denies any fevers or chills. She denies any nausea or vomiting. She denies any chest pain, shortness of
breath, abdominal pain. She denies any pain in either calf.
Past History
<Layne Gomez PA-C - Last Filed: 04/03/24 17:32>
Past History
ED Past Medical History: Cancer (Breast cancer, cervical cancer), HTN and Other (Back pain, Intussusception, Bowel obstructions, C-diff, )
ED Past Surgical History: Gynecological (Hysterectomy), Orthopedic (Femur fracture with allison, Lumbar back surgery) and Other (Left sided mastectomy, cataracts, )
Social History
Tobacco: Non-smoker
Alcohol: Occasional
Drug: None
Personal: Single
Living: alone
Review of Systems
<Layne Gomez PA-C - Last Filed: 04/03/24 17:32>
Review of Systems
All Other Systems: ROS reviewed and negative except as documented in HPI and ROS
Phy Exam
<Layne Gomez PA-C - Last Filed: 04/03/24 17:32>
Physical Exam
Physical Exam:
General: Patient is well appearing and in no acute distress; non-toxic
Skin: 4 cm ulcer noted to dorsum of left foot with surrounding edema and erythema, no active drainage
Head: Normocephalic, atraumatic
Eyes: Sclera non-icteric. EOMs intact.
Cardiac: Regular rate
Peripheral Vascular:
Pulm: Normal respiratory effort
Musculoskeletal: Full ROM to left lower extremity, tenderness to palpation over the dorsum of the foot
Neuro: CN II-XII intact, no focal neurologic deficits. Sensation intact.
Psychiatric: Appropriate mood and affect.
Course
<MARGARET Parisi Filed: 04/03/24 17:32>
Orders/Labs/Results
Orders:
Orders
04/03/24 17:10
Complete Blood Count/With Diff Urgent
Comprehensive Metabolic Panel Urgent
Meropenem [Merrem] 1,000 mg IV NOW STA
Vancomycin [Vancocin] 1,500 mg 0.9% Sodium Chloride 500 ml [Nss] 500 ml IV NOW
04/03/24 17:11
0.9% Sodium Chloride 500 ml [Nss] 500 ml IV BOLUS
Abnormal Lab Results
04/03/24
17:10
RBC 4.19 L 10^6/uL
(4.20-5.40)
MCH 31.3 H pg
(27.0-31.0)
MCHC 32.9 L g/dL
(33.0-37.0)
Absolute Monos (auto) 0.9 H 10^3/uL
(0.1-0.6)
Lymphocytes % 19.4 L %
(20.5-51.1)
Monocytes % 11.7 H %
(1.7-9.3)
04/03/24 17:10
Vital Signs
Initial and Last Documented VS:
Initial Vital Signs
Temp Pulse Resp BP Pulse Ox
97.3 F 73 17 163/84 99
04/03/24 15:05 04/03/24 15:05 04/03/24 15:05 04/03/24 15:05 04/03/24 15:05
Last Documented Vital Signs
Temp Pulse Resp BP Pulse Ox
97.3 F 73 17 163/84 99
04/03/24 15:05 04/03/24 15:05 04/03/24 15:05 04/03/24 15:05 04/03/24 15:05
<Felix Carpio MD - Last Filed: 04/03/24 16:56>
Orders/Labs/Results
Orders:
Orders
04/03/24 17:10
Complete Blood Count/With Diff Urgent
Comprehensive Metabolic Panel Urgent
Meropenem [Merrem] 1,000 mg IV NOW STA
Vancomycin [Vancocin] 1,500 mg 0.9% Sodium Chloride 500 ml [Nss] 500 ml IV NOW
04/03/24 17:11
0.9% Sodium Chloride 500 ml [Nss] 500 ml IV BOLUS
Abnormal Lab Results
04/03/24
17:10
RBC 4.19 L 10^6/uL
(4.20-5.40)
MCH 31.3 H pg
(27.0-31.0)
MCHC 32.9 L g/dL
(33.0-37.0)
Absolute Monos (auto) 0.9 H 10^3/uL
(0.1-0.6)
Lymphocytes % 19.4 L %
(20.5-51.1)
Monocytes % 11.7 H %
(1.7-9.3)
04/03/24 17:10
Vital Signs
Initial and Last Documented VS:
Initial Vital Signs
Temp Pulse Resp BP Pulse Ox
97.3 F 73 17 163/84 99
04/03/24 15:05 04/03/24 15:05 04/03/24 15:05 04/03/24 15:05 04/03/24 15:05
Last Documented Vital Signs
Temp Pulse Resp BP Pulse Ox
97.3 F 73 17 163/84 99
04/03/24 15:05 04/03/24 15:05 04/03/24 15:05 04/03/24 15:05 04/03/24 15:05
<Layne Gomez PA-C - Last Filed: 04/03/24 17:32>
MDM/Problems Addressed
Differential Diagnosis Includes:
ddx include cellulitis, burn, abscess, contact dermatitis,
MDM/Problems Addressed:
84-year-old female presents emergency department today with concerns of a burn to the dorsum of her left foot that she has had for the past few days. She started develop a lot of pain swelling, difficulty walking because of the progression of the
wound. On physical exam she has ulcerated wound to the dorsum of the left foot with surrounding erythema and swelling. She has no associated systemic signs or symptoms, she has had no fevers or chills. She has extensive allergies and intolerances
to a wide range of antibiotics. Considering this, and considering the rapid progression of her wound, will admit for IV antibiotics will start vancomycin and meropenem per ID recommendations.
Chronic conditions affecting care:
htn
<Layne Gomez PA-C - Last Filed: 04/03/24 17:32>
*Pulse Oximetry
Patient hypoxic: no
*Critical Care Note
Total Time (30-74mins, 75-104mins- exclusive of procedures): Not Applicable
Data Reviewed
Review of Other/Old Records Reveals: Records (Reviewed ER physician documentation from 03/31/2024, patient seen for wound on the dorsum of the foot with some slight surrounding edema, decision was made to do topical antibiotics in light of patient's
extensive allergies and C. difficile colitis secondary to clindamycin in the past)
Source: patient and records
<Layne Gomez PA-C - Last Filed: 04/03/24 17:32>
Patient Management
Discussion with other providers: Event Manager (infectious disease Dr. Arnold )
Escalation/DeEscalation of care consider admission/obs:
patient referred for admission
ED Attending Note
<Layne Gomez PA-C - Last Filed: 04/03/24 17:32>
-
Portions of this chart may have been created with voice recognition software.� Occasional wrong word or��sound alike� substitutions may have occurred due to the inherent limitations of voice recognition software.
<Felix Carpio MD - Last Filed: 04/03/24 16:56>
ED Attending Note
Patient seen and examined by attending physician: Yes
ED Attending Note:
I have seen and evaluated the patient with a hada-ke-pgrf encounter. I have spoken to the advance practicer provider and involved in the medical history, the physical exam, medical decision making.
Evaluation and management service: agree unless noted differently below.
Results interpretation: agree unless noted differently below.
Focused HPI:84-year-old female with history as noted presents for evaluation of worsening pain, swelling, drainage from wound on her left foot. She dropped a teabag on her foot a few days ago and sustained a significant burn which blistered and
ulcerated. Initially seen here prescribed bacitracin topically but despite this measure has had increasing redness starting to streak up the foot, purulent drainage from the wound. She is having increasing pain. Came back to the ER for
reassessment. Unfortunately she is allergic to or intolerant of many different antibiotics as documented.
Physical exam: Awake alert no distress. Hypertensive otherwise normal vitals. She has a large wound on the dorsum of the left foot just over the first MTP joint approximately 4 cm diameter with some purulent drainage, a wide range of erythema and
induration, tenderness streaking up towards the dorsum of the foot/ankle
Medical Decision Makin-year-old female presents with an infected foot wound after a burn. Allergic to many different antibiotics. Will admit for treatment with IV antibiotics given number of allergies/intolerance and worsening symptoms
despite topical antibiotics. PA discussed with infectious disease for recommendations regarding initial antibiotic choice.
Discharge Plan
Departure
Patient Disposition: Admit
Date of Disposition: 04/03/24
Time of Disposition: 17:30
Admit to: Med/Surg
Presentation/result/management discussed w/ accepting MD/DO: Hospitalist
Patient with high blood pressure during this ER visit?: Yes
Discharge Problem:
Cellulitis, Second degree burn
Prescriptions:
No Action
cholecalciferol (vitamin D3) [Vitamin D3] 1,000 UNIT tablet,chewable
1,000 unit PO DAILY
lisinopril 5 mg Tablet
5 mg PO DAILY
bacitracin 500 unit/gram ointment
1 applic topical TID Qty: 30 0RF
Rx Instructions:
left foot
Referrals:
Johnathan Hill MD [Family Provider] -
Interventions
Interventions:
*Risk Screen - Suicide Last Done: 04/03/24 15:07
*General Assessment Last Done: 04/03/24 15:07
*Neglect/Abuse Screening Last Done: 04/03/24 15:07
*ED COVID-19 Vaccine History Last Done: 04/03/24 15:07
ED-Skin Assessment Last Done: 04/03/24 16:28
Discharge Date and Time
Print Language: TRINIDADIAN
[2024-04-03 17:22] LABS: % Basophils 0.7 % (0-2); % Eosinophils 5.3 % (0-6); % Immature Granulocytes 0.1 % (0-0.5); % Lymphocytes 19.4 % (20.5-51.1); % Monocytes 11.7 % (1.7-9.3); % Neutrophils 62.8 % (42.2-75.2); Absolute Basophils 0.1 10^3/uL (0-0.2); Absolute Eosinophils 0.4 10^3/uL (0-0.7); Absolute Lymphocytes 1.5 10^3/uL (1.2-3.4); Absolute Monocytes 0.9 10^3/uL (0.1-0.6); Absolute Neutrophils 4.8 10^3/uL (1.4-6.5); Hematocrit 39.8 % (37.0-47.0); Hemoglobin 13.1 g/dL (12.0-16.0); Mean Corp Hgb Conc. 32.9 g/dL (33.0-37.0); Mean Corpuscular Hgb 31.3 pg (27.0-31.0); Mean Platelet Volume 9.9 fL (7.4-10.4); Nucleated Red Blood Cells % 0 %; Platelet Count 245 10^3/uL (130-400); Red Blood Cell Count 4.19 10^6/uL (4.20-5.40); Red Cell Dist. Width 13.8 % (11.5-14.5); White Blood Cell Count 7.7 10^3/uL (4.8-10.8)
--- NOTE | 2024-04-03 17:43 | HPS.HSE ---
Family Physician
-
Family Physician: Johnathan Hill
Chief Complaint
-
L foot wound
History of Present Illness
84 y/o F with PMHx:
Essential hypertension
Breast cancer
Previous bowel obstruction
h/o C diff colitis
who p/w CC L foot wound. Four days ago the patient sustained an injury to the dorsum of her left foot after dropping a hot tea bag on it. She was seen in the ER and was started on topical bacitracin. Since that time she has had increasing erythema
and pain. The pain is made walking difficult. Also reports some purulent drainage. Denies fevers or chills. Denies any other acute complaints.
Medical History
Past Medical History
Past Medical History: Reports Other (Essential hypertension Breast cancer Previous bowel obstruction h/o C diff colitis)
Past Surgical History: Reports Other (N/A)
Social History
Tobacco: Non-smoker
Alcohol: Occasional
Drug: None
Family History
Family History: Not pertinent
Allergies / Home Medications
Allergies reflects when Allergies were last updated in [facility].
Home Medications with original date entered in [facility]
Allergy/Medication List:
Allergies
Allergy/AdvReac Type Severity Reaction Status Date / Time
amoxicillin Allergy Rash Verified 04/03/24 15:06
azithromycin Allergy Rash Verified 04/03/24 15:06
ceftibuten dihydrate Allergy Rash Verified 04/03/24 15:06
[From Cedax]
cefuroxime Allergy Rash Verified 04/03/24 15:06
Cephalosporins Allergy Unknown Verified 04/03/24 17:47
doxycycline Allergy Unknown Verified 04/03/24 15:06
erythromycin base Allergy Rash Verified 04/03/24 17:47
ibuprofen Allergy Unknown Verified 04/03/24 17:47
ofloxacin Allergy Rash Verified 04/03/24 15:06
Penicillins Allergy Rash Verified 04/03/24 17:47
sparfloxacin Allergy Unknown Verified 04/03/24 15:06
Sulfa (Sulfonamide Allergy Rash Verified 04/03/24 17:47
Antibiotics)
sulfamethoxazole Allergy Rash Verified 04/03/24 17:47
Tetracyclines Allergy Shortness Verified 04/03/24 17:47
of Breath
trimethoprim Allergy Rash Verified 04/03/24 17:47
zegan Allergy Unknown Uncoded 04/03/24 15:06
Home Medications
cholecalciferol (vitamin D3) 25 mcg (1,000 unit) chewable tablet (Vitamin D3) 1,000 unit PO DAILY Supplement 05/01/15
lisinopril 5 mg tablet 5 mg PO DAILY Blood Pressure 11/06/22
bacitracin 500 unit/gram topical ointment 1 applic topical TID #30 grams 03/31/24
Review of Systems
-
History Source: Patient
A 12 point ROS was completed and negative except as noted: Yes
Physical Exam
Vital Signs
Vital Signs
Temp Pulse Resp BP Pulse Ox
97.3 F 73 17 163/84 99
04/03/24 15:05 04/03/24 15:05 04/03/24 15:05 04/03/24 15:05 04/03/24 15:05
Physical Exam
General: Other (.)
Laboratory Results
-
04/03/24 17:10
Impression/Plan
-
Gen: NAD, AAOx3.
Eyes: EOMI, PERRLA, no scleral icterus.
Neck: supple.
CV: RRR, +S1/S2, no m/r/g.
Resp: CTAB, no rales, wheezes, or rhonchi.
Abd: +BS, soft, NT, ND
Skin: No rashes. L dorsum of foot with 3cm ulcer just proximal to the first and second MTP joints with surrounding cellulitis. The ulcer itself has some dried pus, no drainage at this time.
Neuro: CN 2-12 intact, non-focal.
Psych: Normal mood and affect.
L foot cellulitis:
-Patient with multiple drug allergies
-IV vancomycin and meropenem
-c/s ID
-Prophylactic oral vancomycin with a history of C. difficile
-pain control
-wound care
Essential hypertension:
-Continue lisinopril
[2024-04-03 17:45] LABS: ALT (SGPT) 19 U/L (0-35); AST (SGOT) 23 U/L (14-36); Albumin 4.2 g/dl (3.5-5.0); Alkaline Phosphatase 109 U/L (38-126); Blood Urea Nitrogen 25 mg/dl (7-17); Calcium 8.9 mg/dl (8.4-10.2); Carbon Dioxide 29 mmol/L (22-30); Chloride 102 mmol/L (98-107); Glucose 96 mg/dl (70-99); Potassium 4.5 mmol/L (3.5-5.1); Sodium 137 mmol/L (135-145); Total Bilirubin 0.6 mg/dl (0.2-1.3); eGFR > 60.00
[2024-04-03] MEDS: VANCOCIN 530 MG IV (18:21)
[2024-04-03] MEDS: NSS 500 IV (18:21)
[2024-04-03] MEDS: FIRVANQ 125 MG PO (18:22)
[2024-04-03] MEDS: MERREM 1000 MG IV (18:22)
[2024-04-03 19:08] VITALS: BP 146/87
--- NOTE | 2024-04-03 21:38 | PTCARENOTE ---
Patient arrived from the ED via stretcher. Pt ambulated into the room with assistance. AAOx3, pt has no current complaints of pain. Vancomycin infusion running. Pt oriented to the room, call lundberg is within reach.
[2024-04-03 21:51] VITALS: BP 175/87; BMI 21.2
--- NOTE | 2024-04-03 21:54 | PHA.VAN.IN ---
Assessment
- Assessment
Renal Function: Appears similar to baseline (04/27/23 BASELINE SCR: 0.9)
Concomitant Antimicrobials: MEROPENEM
- Previous Dosing Experience
Previous Regimen: SINGLE DOSE ONLY
Date of Regimen: 11/28/22
Provided Trough of: UNKNOWN
Provided AUC of: UNKNOWN
AUC Dosing Plan
- Dosing Variables
Dosing Weight (kg): 54.4
Dosing CrCl (ml/min): 41
Vd coefficient (L/kg): 0.7
- Empiric Dosing
Initial / Loading Dose: 1500MG
Maintenance Regimen: 750MG IV Q24H
Estimated AUC (mcg*h/mL): 522
Estimated Peak (mcg*h/mL): 32.7
Estimated Trough (mcg/ml): 13.5
Estimated Half Life (H): 18
Pharmacokinetics Vancomycin I
- -
Patient Age: 84
Patient Sex: Female
Vancomycin Day #: 1
Indication: Skin And Soft Tissue ([L] FOOT CELLULITIS)
Requesting Provider: GERARDO
Height / Weight:
Height 5 ft 5 in
Actual Weight 54.431 kg
Pertinent Past Medical History: BREAST CA
- Vital Signs / Lab Results
Temp Pulse Resp BP Pulse Ox
98.6 F 85 20 146/87 98
04/03/24 19:08 04/03/24 19:08 04/03/24 19:08 04/03/24 19:08 04/03/24 19:08
Lab Results - Hematology
04/03/24
17:10
WBC 7.7
Lab Results - Chemistry
04/03/24
17:10
BUN 25 H
Creatinine 0.9
Albumin 4.2
[2024-04-03 23:20] VITALS: BP 179/87
[2024-04-04] MEDS: STERILE WATER FOR INJECTION 10 ML IV ×2 (01:44→09:28)
[2024-04-04] MEDS: MERREM 500 MG IV ×2 (01:44→09:28)
[2024-04-04] MEDS: VANCOCIN 150 IV (05:27)
[2024-04-04] MEDS: FIRVANQ 125 MG PO ×2 (05:27→17:07)
[2024-04-04 07:00] VITALS: BP 138/91
--- NOTE | 2024-04-04 08:08 | WOUNDNOTE ---
[facility] RN note: Patient admitted with L foot cellulitis. Patient lives alone. She dropped a hot tea bag on her bare foot about 5 days ago. Patient works at [employer].
See H&P for complete history.
PMH: HTN, breast cancer, bowel obstruction, C diff, fractured femur with allison R leg, laminectomy, L breast mastectomy.
Wound Location and type/assessment: Patient admitted with: L dorsal foot full thickness wound to subcutaneous layer or deeper, pink with yellow slough/fibrin suspect a 3rd degree burn. Trace L foot/ankle edema. +Palpable pedal pulse. Patient denies
pain. R lateral wrist patch of dry red skin. Heels blanchable mild red.
Appetite: good.
Pressure redistribution devices in place: [employer] Accumax. Patient turns self and ambulates.
Plan: L foot dressing changed. Heels off bed with air chair cushion. Patient incontinent of urine. Removed her pull up brief and sweat pants. Ultrasorb under pad in place. Instructed patient to wear comfortable non skid slippers. Instructed
pressure injury prevention measures.
Will confirm orders with hospitalist and updated RENÉE Perez.
Care plan to be updated and will follow as needed.
Instructed pateint to follow up at wound care center upon discharge.
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
--- NOTE | 2024-04-04 08:31 | PHA.VAN.FU ---
Vancomycin Assessment / Plan
- Assessment
Renal Function: Stable
In the past 24 hrs, patient has been: Afebrile
Concomitant Antimicrobials: meropenem, vanco PO
- Dosing Plan
Continue: Vanc 750mg Q24H
- Monitoring Plan
No level(s) ordered at this time: consider levels in next few days
- Follow Up
Pharmacy will continue to follow.
Vancomycin Follow UP
- -
Patient Age: 84
Patient Sex: Female
Vancomycin Day #: 2
Indication: Skin And Soft Tissue
Requesting Provider: Dr. Mendoza
Pertinent Antimicrobial Allergies:
amoxicillin - rash
azithromycin - rash
ceftibuten - rash
cefuroxime - rash
cephalosporins - unknown
doxycycline - unknown
erythromycin - rash
ibuprofen - unknown
ofloxacin - rash
penicillins - rash
sparfloxacin - unknown
sulfonamide antibiotics - rash
tetracyclines - SOB
SMX/TMP - rash
Height / Weight:
Height 5 ft 7 in
Actual Weight 61.405 kg
Pertinent Past Medical History: breast cancer
- Vital Signs / Lab Results
Temp Pulse Resp BP Pulse Ox
97.7 F 83 20 138/91 95
04/04/24 07:00 04/04/24 07:00 04/04/24 07:00 04/04/24 07:00 04/04/24 07:00
Lab Results - Hematology
04/03/24
17:10
WBC 7.7
Lab Results - Chemistry
04/03/24
17:10
BUN 25 H
Creatinine 0.9
Albumin 4.2
[2024-04-04] MEDS: ZESTRIL 5 MG PO (09:28)
[2024-04-04] MEDS: VITAMIN D3 (cholecalciferol) 25 MCG PO (09:28)
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
[2024-04-04 10:31] VITALS: BP 141/63; PULSE 88; O2SAT 96
[2024-04-04 10:37] VITALS: BP 141/63; PULSE 85; O2SAT 95
--- NOTE | 2024-04-04 10:55 | W.PN.UPDATE ---
Update Note
Progress Note Update
I saw and evaluated the patient. I reviewed the resident�s note and agree with findings and plan as documented in the resident�s note.
No new complaints.
Gen: NAD, AAOx3.
Eyes: EOMI, PERRLA, no scleral icterus.
Neck: supple.
CV: RRR, +S1/S2, no m/r/g.
Resp: CTAB, no rales, wheezes, or rhonchi.
Abd: +BS, soft, NT, ND
Skin: No rashes. L dorsum of foot with C/D/I dressing with surrounding cellulitis.
Neuro: CN 2-12 intact, non-focal.
Psych: Normal mood and affect.
L foot cellulitis:
-Patient with multiple drug allergies
-IV vancomycin and meropenem
-c/s ID
-Prophylactic oral vancomycin with a history of C. difficile
-pain control
-wound care
-c/s podiatry
Essential hypertension:
-Continue lisinopril
FULL/Lovenox
[2024-04-04] MEDS: ANCEF 10 IV ×2 (13:31→21:02)
[2024-04-04 15:00] VITALS: BP 125/61
--- NOTE | 2024-04-04 16:12 | CM ---
Alert awake oriented patient who lives alone in a 2nd floor home with 14 steps to enter. She is independent in driving and in all activities of daily living.Offered VN she declined.Pt may need wound care at pa.
No adaptive devices
Never had VN/SNF
Pharmacy [facility]
PCP Dr Hill
PLAN Home no needs
[2024-04-04 16:45] VITALS: BP 113/67
[2024-04-04] MEDS: LOVENOX 40 MG SC (17:07)
[2024-04-04 23:39] VITALS: BP 143/70
--- NOTE | 2024-04-04 23:42 | PTCARENOTE ---
Earlier, pt called to report that her left foot is hurting. Offered pain medicine, pt states 'I'm not a pill person.'. Offered IV morphine, pt refuses. Pt states that her foot was not painful before she came to the hospital. Pt appears angry,
anxious, upset to not able to figure out how TV works. Assist pt with TV channels, dressing changed, wound cx collected, and wound care provided. Advise the pt to call for pain medicine if she changes her mind. Pt was observed sleeping later on.
Will follow.
[2024-04-05] MEDS: ANCEF 10 IV ×3 (05:16→21:23)
[2024-04-05] MEDS: FIRVANQ 125 MG PO ×2 (05:17→17:23)
[2024-04-05 07:28] VITALS: BP 153/67
[2024-04-05 08:23] LABS: Hemoglobin 13.6 g/dL (12.0-16.0); Mean Corp Hgb Conc. 33.2 g/dL (33.0-37.0); Mean Corpuscular Hgb 31.5 pg (27.0-31.0); Mean Corpuscular Volume 94.9 fL (81.0-99.0); Platelet Count 233 10^3/uL (130-400); Red Blood Cell Count 4.32 10^6/uL (4.20-5.40); Red Cell Dist. Width 13.5 % (11.5-14.5); White Blood Cell Count 6.3 10^3/uL (4.8-10.8)
[2024-04-05] MEDS: ZESTRIL 5 MG PO (08:38)
[2024-04-05] MEDS: VITAMIN D3 (cholecalciferol) 25 MCG PO (08:38)
[2024-04-05] MEDS: SANTYL OINTMENT 1 APPLIC TOPICAL (08:38)
--- NOTE | 2024-04-05 08:41 | W.PN.HOSP.TC ---
Today's Communication/Plan
-
See plan
Assessment / Plan
Assessment / Plan
Gen: NAD, AAOx3.
Eyes: EOMI, PERRLA, no scleral icterus.
Neck: supple.
CV: Remains RRR, +S1/S2, no m/r/g.
Resp: Remains CTAB, no rales, wheezes, or rhonchi.
Abd: +BS, soft, NT, ND
Skin: No rashes. L dorsum of foot ulcer with scan seropurulent drainage and mild surrounding cellulitis
Neuro: CN 2-12 intact, non-focal.
Psych: Normal mood and affect.
L foot cellulitis:
-Patient with multiple drug allergies
-cont IV vancomycin and Ancef as per ID
-Prophylactic oral vancomycin with a history of C. difficile
-pain control
-wound care
-c/s podiatry (order placed 04/04/24 at 1149)
Essential hypertension:
-Continue lisinopril
FULL/Lovenox
Anticipated Discharge: Within 24 hours
Subjective/Interval History
-
Date of Service: April 05, 2024
Objective Data
-
Labs:
Laboratory Results
04/05/24
07:47
WBC 6.3
Hgb 13.6
Hct 41.0
Plt Count 233
Sodium Pending
Potassium Pending
Chloride Pending
Carbon Dioxide Pending
BUN Pending
Creatinine Pending
Glucose Pending
Calcium Pending
Vital Signs:
Vital Signs
Temp Pulse Resp BP Pulse Ox
97.9 F 75 16 153/67 96
04/05/24 07:28 04/05/24 08:38 04/05/24 07:28 04/05/24 08:38 04/05/24 07:28
I&O
04/04/24 04/05/24 04/06/24
06:59 06:59 06:59
Intake Total 0 / 0 630 / 630
Balance 0 / 0 630 / 630
[2024-04-05 09:10] LABS: Blood Urea Nitrogen 22 mg/dl (7-17); Calcium 8.9 mg/dl (8.4-10.2); Carbon Dioxide 27 mmol/L (22-30); Chloride 105 mmol/L (98-107); Estimated Creatinine Clearance 53 ml/min; Glucose 105 mg/dl (70-99); Potassium 4.4 mmol/L (3.5-5.1); Sodium 138 mmol/L (135-145); eGFR > 60.00
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
[2024-04-05 15:00] VITALS: BP 152/70
--- NOTE | 2024-04-05 16:08 | CM ---
Met with patient at bedside.
Discussed VN options - patient agreeable
Referral placed in careport
PLAN: Home with [facility] when medically stable.
[2024-04-05] MEDS: LOVENOX 40 MG SC (17:23)
[2024-04-05 23:35] VITALS: BP 145/75
[2024-04-06] MEDS: ANCEF 10 IV (05:15)
[2024-04-06] MEDS: FIRVANQ 125 MG PO (05:15)
--- NOTE | 2024-04-06 07:44 | W.PN.HOSP.TC ---
Today's Communication/Plan
-
see bold, awaiting podiatry c/s
Assessment / Plan
Assessment / Plan
Gen: NAD, AAOx3.
Eyes: EOMI, PERRLA, no scleral icterus.
Neck: supple.
CV: Continues to remain RRR, +S1/S2, no m/r/g.
Resp: CTAB anteriorly, no rales, wheezes, or rhonchi.
Skin: No rashes. L dorsum of foot ulcer with mild surrounding cellulitis
Neuro: CN 2-12 intact, non-focal.
Psych: Normal mood and affect.
L foot cellulitis:
-Patient with multiple drug allergies
-cont IV Ancef as per ID
-Prophylactic oral vancomycin with a history of C. difficile
-pain control
-wound care
-c/s podiatry (order placed 04/04/24 at 1149)
Essential hypertension:
-Continue lisinopril
FULL/Lovenox
Anticipated Discharge: Within 24 hours
Subjective/Interval History
-
Date of Service: April 06, 2024
No new complaints.
Objective Data
-
Vital Signs:
Vital Signs
Temp Pulse Resp BP Pulse Ox
97.9 F 82 18 145/75 95
04/05/24 23:35 04/05/24 23:35 04/05/24 23:35 04/05/24 23:35 04/05/24 23:35
I&O
04/05/24 04/06/24 04/07/24
06:59 06:59 06:59
Intake Total 630 / 630 660 / 660
Balance 630 / 630 660 / 660
[2024-04-06 07:54] VITALS: BP 124/63
[2024-04-06] MEDS: VITAMIN D3 (cholecalciferol) 25 MCG PO (08:18)
[2024-04-06] MEDS: SANTYL OINTMENT 1 APPLIC TOPICAL (08:18)
[2024-04-06] MEDS: ZESTRIL 5 MG PO (08:18)
[2024-04-06] MEDS: VISBIOME 2 CAP PO (10:15)
[2024-04-06] MEDS: CLEOCIN 300 MG PO (12:35)
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
[2024-04-06] MEDS: ZYVOX 600 MG PO ×2 (13:59→21:04)
--- NOTE | 2024-04-06 14:05 | PTCARENOTE ---
Pt with(+) MRSA in lt foot wound. Pt for transfer to room 423. Report caled to Damaso CHINCHILLA. Pt transferred via wheelchair to [facility] with all belongings, no c/o at time of transfer. Lt foot dsg D/I.
[2024-04-06 14:29] VITALS: BP 117/60
[2024-04-06] MEDS: LOVENOX 40 MG SC (18:51)
[2024-04-06 23:50] VITALS: BP 127/62
[2024-04-07 07:39] VITALS: BP 118/58
[2024-04-07] MEDS: ZYVOX 600 MG PO (08:06)
[2024-04-07] MEDS: VISBIOME 2 CAP PO (08:07)
[2024-04-07] MEDS: VITAMIN D3 (cholecalciferol) 25 MCG PO (08:08)
[2024-04-07] MEDS: ZESTRIL 5 MG PO (08:11)
[2024-04-07] MEDS: SANTYL OINTMENT 1 APPLIC TOPICAL (13:15)
--- NOTE | 2024-04-07 13:19 | VNURNOTE ---
Home Health Liaison met with patient at bedside to discuss [facility] nurse/therapy, visits, schedule and homebound status. Patient is agreeable and understands that visits at home will be 2-3 x per week to assess and teach medical management. Reviewed
with patient that VNs typically do not see patients every day. Instructed patient to think of someone- a friend or neighbor who would be willing to learn wound care a few days/week when VN not available. Patient stated she didn't have anyone.
Suggested patient hire a short term caregiver who could assist. Patient did not seem interested or agreeable. [employer] consult added to referrals. Patient is aware that VN will contact them for start of care in 1-2 days after discharge from . [facility]
referral accepted in [facility] Port.
--- NOTE | 2024-04-07 14:42 | CM ---
Patient for discharge home today with [facility]. CM reviewed IMM and signed form placed on chart. CM will continue to follow for discharge planning needs.
Plan; home with [facility]
[2024-04-07] MEDS: TYLENOL 650 MG PO (15:08)
[2024-04-07 15:33] VITALS: BP 119/49
--- NOTE | 2024-04-07 15:56 | PTCARENOTE ---
Wound care performed on patient. Discharge order written and discharge instructions reviewed with patient. Pt states lower back pain from 'the chair you guys made me sit in before I came up here.' PRN Tylenol administered. Wound care and discharge
instructions reviewed with patient. Wound care supplies in room sent home with patient. Pt driving self home. Volunteer escort by wheelchair to [address] Lobby.
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
== END 2024-04-07 16:24 | disposition home health service (06) | DRG 934 ==
LOC: 4 WEST ACU 19:53
PROVIDERS: Student in an Organized Health Care Education/Training Program; ADMITTING PHYSICIAN Internal Medicine; ATTENDING PHYSICIAN Internal Medicine; CONSULT PHYSICIAN Student in an Organized Health Care Education/Training Program; EMERGENCY PHYSICIAN Emergency Medicine; FAMILY PHYSICIAN Family Medicine
DX: T25.322A Burn of third degree of left foot, initial encounter (principal); L03.116 Cellulitis of left lower limb; I10 Essential (primary) hypertension; B95.62 Methicillin resistant Staphylococcus aureus infection as the cause of diseases classified elsewhere; X19.XXXA Contact with other heat and hot substances, initial encounter; Z90.12 Acquired absence of left breast and nipple; Z85.3 Personal history of malignant neoplasm of breast; Z88.0 Allergy status to penicillin; Z88.1 Allergy status to other antibiotic agents; Z88.2 Allergy status to sulfonamides
CPT/HCPCS: 80048; 80053; 85025; 85027; 87070; 87147; 87186; 87205; 97162; 97166; 99285; J2185

== ENCOUNTER 2024-04-10 09:53 | Inpatient (IN) | payer MEDICARE, OTHER, SELFPAY ==
[2024-04-08] VITALS (7 sets, daily range): BP systolic 91–175; BP diastolic 67–88; BMI 21.2
[2024-04-08 16:31] LABS: % Basophils 0.4 % (0-2); % Eosinophils 2.2 % (0-6); % Immature Granulocytes 0.4 % (0-0.5); % Lymphocytes 12.8 % (20.5-51.1); % Monocytes 7.1 % (1.7-9.3); % Neutrophils 77.1 % (42.2-75.2); Absolute Eosinophils 0.2 10^3/uL (0-0.7); Absolute Lymphocytes 1.3 10^3/uL (1.2-3.4); Absolute Monocytes 0.7 10^3/uL (0.1-0.6); Hematocrit 42.4 % (37.0-47.0); Hemoglobin 13.8 g/dL (12.0-16.0); Mean Corp Hgb Conc. 32.5 g/dL (33.0-37.0); Mean Corpuscular Hgb 31.1 pg (27.0-31.0); Mean Corpuscular Volume 95.5 fL (81.0-99.0); Nucleated Red Blood Cells % 0 %; Red Blood Cell Count 4.44 10^6/uL (4.20-5.40); Red Cell Dist. Width 13.8 % (11.5-14.5); White Blood Cell Count 10.4 10^3/uL (4.8-10.8)
[2024-04-08 16:41] LABS: ALT (SGPT) 14 U/L (0-35); AST (SGOT) 33 U/L (14-36); Albumin 4.5 g/dl (3.5-5.0); Alkaline Phosphatase 131 U/L (38-126); Blood Urea Nitrogen 40 mg/dl (7-17); Calcium 9.4 mg/dl (8.4-10.2); Carbon Dioxide 25 mmol/L (22-30); Chloride 98 mmol/L (98-107); Glucose 101 mg/dl (70-99); Potassium 4.8 mmol/L (3.5-5.1); Sodium 133 mmol/L (135-145); Total Bilirubin 0.9 mg/dl (0.2-1.3); Total Protein 7.5 g/dl (6.3-8.2); eGFR 56.25
--- NOTE | 2024-04-08 18:38 | ED.GENMED ---
History of Present Illness
General
Chief Complaint: Weakness
Source: patient
Exam Limitations: none
Time Seen by Provider: 04/08/24 15:29
History of Present Illness
History of Present Illness:
84-year-old female presents for evaluation of generalized weakness. She was just discharged from this hospital late last night for cellulitis to the right leg. She was discharged to home where she lives by herself. She had a large bowel movement
she was able to control and she tried to get up and walk but she was too weak to support her weight. She denies fevers. No chest pain or shortness of breath.
Past History
Past History
ED Past Medical History: Cancer (Breast cancer, cervical cancer), HTN and Other (Back pain, Intussusception, Bowel obstructions, C-diff, )
ED Past Surgical History: Gynecological (Hysterectomy), Orthopedic (Femur fracture with allison, Lumbar back surgery) and Other (Left sided mastectomy, cataracts, )
Social History
Tobacco: Non-smoker
Alcohol: Occasional
Drug: None
Personal: Single
Living: alone
Phy Exam
Physical Exam
Physical Exam:
General: Well-appearing female no acute respiratory distress but is covered in stool upon arrival
HEENT normocephalic atraumatic neck is supple
Heart: Regular rate and rhythm
Lungs: Clear no wheeze
Abdomen soft nontender
Extremities: No cyanosis
Course
Orders/Labs/Results
Orders:
Orders
04/08/24 16:14
Complete Blood Count/With Diff Urgent
Comprehensive Metabolic Panel Urgent
Abnormal Lab Results
04/08/24
16:14
MCH 31.1 H pg
(27.0-31.0)
MCHC 32.5 L g/dL
(33.0-37.0)
Absolute Neuts (auto) 8.0 H 10^3/uL
(1.4-6.5)
Absolute Monos (auto) 0.7 H 10^3/uL
(0.1-0.6)
Neutrophils % 77.1 H %
(42.2-75.2)
Lymphocytes % 12.8 L %
(20.5-51.1)
Sodium 133 L mmol/L
(135-145)
BUN 40 H mg/dl
(7-17)
Glucose 101 H mg/dl
(70-99)
Alkaline Phosphatase 131 H U/L
(38-126)
04/08/24 16:14
04/08/24 16:14
Vital Signs
Initial and Last Documented VS:
Initial Vital Signs
Temp Pulse Resp BP Pulse Ox
98.2 F 78 18 124/71 100
04/08/24 12:11 04/08/24 12:11 04/08/24 12:11 04/08/24 12:11 04/08/24 12:11
Last Documented Vital Signs
Temp Pulse Resp BP Pulse Ox
97.4 F 74 16 140/67 96
04/08/24 14:56 04/08/24 14:56 04/08/24 14:56 04/08/24 14:56 04/08/24 14:56
MDM/Problems Addressed
Differential Diagnosis Includes:
Patient with generalized weakness unable to walk at home secondary to weakness. Recent admission and discharged late last night. Consider anemia versus electrolyte abnormality versus general deconditioning.
Labs reviewed without significant finding. Patient unfit for discharge and may benefit from physical therapy and case management evaluation
*Critical Care Note
Total Time (30-74mins, 75-104mins- exclusive of procedures): Not Applicable
ED Attending Note
-
Portions of this chart may have been created with voice recognition software.� Occasional wrong word or��sound alike� substitutions may have occurred due to the inherent limitations of voice recognition software.
Discharge Plan
Departure
Patient Disposition: Admit
Date of Disposition: 04/08/24
Time of Disposition: 18:43
Presentation/result/management discussed w/ accepting MD/DO: Hospitalist
Discharge Problem:
Weakness
Prescriptions:
No Action
cholecalciferol (vitamin D3) [Vitamin D3] 1,000 UNIT tablet,chewable
1,000 unit PO DAILY
lisinopril 5 mg Tablet
5 mg PO DAILY
linezolid 600 mg Tablet
600 mg PO BID Qty: 7 0RF
Referrals:
Johnathan Hill MD [Family Provider] -
Interventions
Interventions:
*Risk Screen - Suicide Last Done: 04/08/24 12:11
*Neglect/Abuse Screening Last Done: 04/08/24 12:11
*ED COVID-19 Vaccine History Last Done: 04/08/24 12:11
Discharge Date and Time
Print Language: LUXEMBOURGISH
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
--- NOTE | 2024-04-08 20:53 | EDRN ---
@[id number] update given to daughter, daughter would appreciate a call tomorrow to talk about inpatient care/[facility].
--- NOTE | 2024-04-08 20:55 | W.PN.UPDATE ---
Addendum entered and electronically signed by Sheree Treadwell MD 04/08/24 20:57:
Wheezing on examination. Marlen zambranon.
Original Note:
Update Note
Progress Note Update
This is an addendum to the H&P written by Angela Comer on 04/08/2024.� Patient seen and examined independently with DIRECTOR SHIP.
84-year-old female past medical history of hypertension, breast cancer, cervical cancer, chronic back pain status post lumbar back surgery, intussusception, bowel obstructions, discharged yesterday for left foot wound/cellulitis secondary to burn
treated with linezolid to be completed on 04/10.
Presenting because discharged home where she lives by herself and she was found by her family member sitting on the sofa.� She was covered in stool on arrival.
Blood pressure initially 160 but she had a single blood pressure 91/80.
Patient appears to have cognitive impairment that is chronic.� Some wheezing noted on examination.� Check orthostatics to evaluate for orthostatic hypotension.� Check influenza, COVID, chest x-ray, urinalysis.
PT/OT and case management.
[2024-04-08] MEDS: DUONEB 3 ML INH (21:38)
[2024-04-08 22:14] LABS: COVID-19 Antigen Negative (Negative)
--- NOTE | 2024-04-08 23:00 | PTCARENOTE ---
Pt arrived to room 427-01. Pt transferred from stretcher to bed. Pt AAOx3, VSS. Pt placed on bed alarm. Pt oriented to room, call lundberg placed within reach.
[2024-04-09 01:55] VITALS: BP 152/80
[2024-04-09] MEDS: VITAMIN D3 (cholecalciferol) 25 MCG PO (07:25)
[2024-04-09] MEDS: HEPARIN 5000 UNITS SC ×2 (07:25→21:03)
[2024-04-09 07:30] VITALS: BP 152/68
--- NOTE | 2024-04-09 08:36 | VNURNOTE ---
Chart reviewed. Patient DC'ed home 04/07. Patient was scheduled for VN start of care visit 04/09, however, patient came back to ER 04/08.
[2024-04-09 09:53] LABS: Hematocrit 40.6 % (37.0-47.0); Hemoglobin 13.4 g/dL (12.0-16.0); Mean Corpuscular Hgb 31.8 pg (27.0-31.0); Mean Corpuscular Volume 96.4 fL (81.0-99.0); Mean Platelet Volume 10.1 fL (7.4-10.4); Platelet Count 264 10^3/uL (130-400); Red Blood Cell Count 4.21 10^6/uL (4.20-5.40); Red Cell Dist. Width 13.7 % (11.5-14.5); White Blood Cell Count 9.8 10^3/uL (4.8-10.8)
[2024-04-09 10:19] LABS: Blood Urea Nitrogen 35 mg/dl (7-17); Calcium 9.1 mg/dl (8.4-10.2); Carbon Dioxide 26 mmol/L (22-30); Chloride 100 mmol/L (98-107); Estimated Creatinine Clearance 52 ml/min; Glucose 130 mg/dl (70-99); Potassium 4.8 mmol/L (3.5-5.1); Sodium 136 mmol/L (135-145); eGFR > 60.00
[2024-04-09 10:27] VITALS: BP 135/66; PULSE 89; O2SAT 97
[2024-04-09] MEDS: NSS 1000 IV (11:36)
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
--- NOTE | 2024-04-09 12:12 | WOUNDNOTE ---
LEFT DORSAL FOOT
--- NOTE | 2024-04-09 12:13 | WOUNDNOTE ---
LEFT DORSAL FOOT
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
[2024-04-09 14:30] LABS: Urine Albumin 1+ (Neg - Trace); Urine Bilirubin Negative (Negative); Urine Character Clear (Clear); Urine Color Yellow; Urine Glucose Negative (Negative); Urine Ketone Negative (Negative); Urine Leukocyte 3+ (Negative); Urine Nitrite Negative (Negative); Urine Occult Blood 1+ (Negative); Urine Urobilinogen Negative (Neg - 1+)
--- NOTE | 2024-04-09 14:30 | CM ---
Addendum entered by Autumn Cortez 04/09/24 14:49:
CM spoke with daughter and she stated that she was here recently and patient had soiled clothing on the floor and she cleaned the apartment at that time. When patient cousin found her she found the apartment door open and the pocketbook in the
hallway. Patient daughter states that patient is a 'miserable human being' and would want her to go to a SNF. Patient daughter asking for [facility] and indicated that she would be on a flight here on sunday am. Patient daughter in favor of referral to
[facility]. Patient daughter indicated patient had lost 2 phones in last 7 days. Daughter planning to call patient and talk to her about SNF option. Patient daughter has POA. CM will continue to follow for discharge planning needs.
Plan; SNF if patient agrees to placement
Original Note:
Patient seen at bedside with physicians. Patient lives alone in a 2nd floor home with 14 steps to enter. She was independent in driving and in all activities of daily living. Patient was found and brought to ED after being unable to get off of sofa.
CM will call to patient daughter at her request. Psych did assess patient and felt she was medically appropriate to make medical decisions. Patient was set to start with VN. Patient PCP is Dr. Hill and [facility] on [facility].
Patient wants to leave and go home with VN for wound care. CM will continue to follow for discharge planning needs.
PLAN; Home no needs
[2024-04-09 14:52] LABS: Urine Squamous Cell >30 /LPF (Few)
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
[2024-04-09 14:56] LABS: Urine Bacteria Few (Negative); Urine White Cell 26-30 /HPF (0-5); Urine Yeast Few (Negative)
[2024-04-09 15:00] VITALS: BP 130/70; BP 138/78; BP 143/73; PULSE 100; PULSE 109; PULSE 96
[2024-04-09 16:52] VITALS: BP 130/70; BP 138/78; BP 143/73; PULSE 100; PULSE 109; PULSE 96
[2024-04-09] MEDS: ANCEF 10 IV (17:46)
[2024-04-09 23:00] VITALS: BP 148/67
[2024-04-10] MEDS: ANCEF 10 IV ×2 (02:40→10:36)
[2024-04-10] MEDS: NSS 1000 IV (04:19)
[2024-04-10 06:40] LABS: Hematocrit 35.3 % (37.0-47.0); Mean Corpuscular Hgb 31.6 pg (27.0-31.0); Mean Corpuscular Volume 92.9 fL (81.0-99.0); Mean Platelet Volume 10.1 fL (7.4-10.4); Platelet Count 256 10^3/uL (130-400); Red Cell Dist. Width 13.6 % (11.5-14.5)
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
[2024-04-10 07:15] VITALS: BP 152/73
[2024-04-10 07:22] LABS: Blood Urea Nitrogen 28 mg/dl (7-17); Calcium 8.7 mg/dl (8.4-10.2); Carbon Dioxide 22 mmol/L (22-30); Chloride 103 mmol/L (98-107); Estimated Creatinine Clearance 52 ml/min; Glucose 92 mg/dl (70-99); Potassium 4.4 mmol/L (3.5-5.1); Sodium 136 mmol/L (135-145); eGFR > 60.00
[2024-04-10 07:51] LABS: Vitamin D, 25-OH*** 15.7 ng/mL (30-80)
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
[2024-04-10 08:19] LABS: TSH Reflex To Free T4 5.35 uIU/ml (0.47-4.68)
[2024-04-10] MEDS: ZESTRIL 5 MG PO (08:38)
[2024-04-10] MEDS: HEPARIN 5000 UNITS SC ×2 (08:39→20:12)
[2024-04-10] MEDS: VITAMIN D3 (cholecalciferol) 25 MCG PO (08:39)
[2024-04-10] MEDS: TYLENOL 650 MG PO (09:55)
[2024-04-10] MEDS: SANTYL OINTMENT 1 APPLIC TOPICAL (10:37)
[2024-04-10 11:15] VITALS: BP 139/68; BP 139/70; BP 154/63; PULSE 76; PULSE 79; PULSE 92
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
[2024-04-10] MEDS: NSS IV (13:39)
[2024-04-10 14:05] LABS: Folate 3.4 ng/ml (2.76-20); Vitamin B12 312 pg/ml (239-931)
--- NOTE | 2024-04-10 15:12 | CM ---
Patient seen at bedside with physician and discussed options for discharge. CM sent referral on [facility], awaiting response from Lia[facility]. Patient told daughter she was going to rehab. CM awaiting response from SNF regarding bed
availability. CM will continue to follow for discharge planning needs.
Plan; SNF
[2024-04-10 15:15] VITALS: BP 141/66
--- NOTE | 2024-04-10 17:45 | W.PN.UPDATE ---
Update Note
Progress Note Update
Called patient's daughter to give updates on test results, treatment and placement plans. Potential discharge tomorrow. Daughter is interested in having her mother discharged to SNF. trauma manager aware.
[2024-04-10] MEDS: ZYVOX 600 MG PO (20:12)
[2024-04-10 23:02] VITALS: BP 127/54
[2024-04-11 07:50] VITALS: BP 142/75
[2024-04-11] MEDS: SANTYL OINTMENT 1 APPLIC TOPICAL (09:42)
[2024-04-11] MEDS: HEPARIN 5000 UNITS SC ×2 (09:43→20:17)
[2024-04-11] MEDS: VITAMIN D3 (cholecalciferol) 25 MCG PO (09:51)
[2024-04-11] MEDS: ZYVOX 600 MG PO ×2 (09:51→20:17)
[2024-04-11] MEDS: ZESTRIL 5 MG PO (09:51)
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
[2024-04-11 11:44] VITALS: BP 151/75; BP 161/87; BP 169/77; PULSE 69; PULSE 81; PULSE 91
[2024-04-11 14:33] VITALS: BP 120/56
--- NOTE | 2024-04-11 15:13 | CM ---
CM spoke with patient daughter several times via phone. Patient daughter now flying here to [facility] and will be here approx 10pm. Patient daughter plan is for discharge home with [facility] and then flying out to [place] possibly as early as sunday. CM
updated [facility] and they are unable to see patient for one day. CM will update nursing to request review of wound care prior to discharge. Patient very happy with plan and completed IMM form placed on chart. CM will continue to follow for discharge
planning needs.
Plan; home with daughter
[2024-04-11 16:04] VITALS: BP 143/69
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
--- NOTE | 2024-04-11 22:30 | PTCARENOTE ---
Did pt's wound care with pt's daughter present. Went over wound care instructions as well as discharge instructions. When pt and her daughter got to the pt's apartment, they were unable to locate the pt's Linezolid. Will pass along to House Provider
and/or dayshift.
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
--- NOTE | 2024-04-13 11:02 | CM ---
global account manager received a call that [facility] needed a referral referral sent through [facility].
Plan; Home with [facility]
== END 2024-04-11 23:00 | disposition home health service (06) | DRG 934 ==
LOC: 4 WEST ACU 09:53
PROVIDERS: Clinical Nurse Specialist Family Health; Physician Assistant; Student in an Organized Health Care Education/Training Program; ADMITTING PHYSICIAN Hospitalist; ATTENDING PHYSICIAN Internal Medicine; CONSULT PHYSICIAN Podiatrist Foot & Ankle Surgery; CONSULT PHYSICIAN Psychiatry & Neurology Psychiatry; EMERGENCY PHYSICIAN Emergency Medicine; FAMILY PHYSICIAN Family Medicine
PROC: 0HBNXZZ Excision of Left Foot Skin, External Approach (ICD-10-PCS; 2024-04-10)
DX: T25.322A Burn of third degree of left foot, initial encounter (principal); L03.116 Cellulitis of left lower limb; E87.1 Hypo-osmolality and hyponatremia; E86.0 Dehydration; I10 Essential (primary) hypertension; I95.1 Orthostatic hypotension; J45.909 Unspecified asthma, uncomplicated; R53.1 Weakness; G31.84 Mild cognitive impairment of uncertain or unknown etiology; Z85.41 Personal history of malignant neoplasm of cervix uteri; Z85.3 Personal history of malignant neoplasm of breast; Z88.2 Allergy status to sulfonamides; Z88.0 Allergy status to penicillin; Z88.7 Allergy status to serum and vaccine; Z88.1 Allergy status to other antibiotic agents
CPT/HCPCS: 70551; 71046; 80048; 80053; 81003; 81015; 82306; 82607; 82746; 83735; 84439; 84443; 85025; 85027; 87070; 87077; 87086; 87186; 87502; 87811; 93306; 97116; 97162; 97167; 97530; 99285